=== PATIENT | male | born 1990 | race Hispanic/Latino ===

== ENCOUNTER 2017-08-28 17:03 | Emergency (ER) | payer OTHER ==
[2017-08-28] MEDS ORDERED: NORCO 5-325 TA1 EACH PO (18:35)
--- NOTE | 2017-08-28 22:24 | EKG ---
[facility] [address] [facility] [place], [place] [address] Signed Normal sinus rhythm Rightward axis Borderline ECG No previous ECGs available Confirmed by STU LOBO MD ([id number] on 08/28/2017 10:24:06 PM Electronically Signed By: STU LOBO MD 08/28/17 2224 PATIENT NAME: SABAS BANEGAS A Electrocardiogram DATE OF : [birth year] PHYSICIAN: STU LOBO MD REPORT #: [id number] REPORT IS CONFIDENTIAL AND NOT TO BE RELEASED WITHOUT AUTHORIZATION
== END 2017-08-28 18:52 | disposition home or self-care (01) ==
LOC: ED 17:03
DX: S30.1XXA Contusion of abdominal wall, initial encounter (principal); M25.572 Pain in left ankle and joints of left foot; M25.522 Pain in left elbow; V86.99XA Unspecified occupant of other special all-terrain or other off-road motor vehicle injured in nontraffic accident, initial encounter
CPT/HCPCS: 70450; 70460; 71260; 73080; 73610; 74177; 80053; 81001; 82150; 82550; 83605; 83690; 85025; 85610; 85730; 86850; 86900; 86901; 86920; 93005; 93010; 96374; 96375; 99284; G0480; J2270; J2405; J7120; Q9967

== ENCOUNTER 2017-10-28 15:47 | Emergency (ER) | payer OTHER ==
[~2017-10-28] VITALS: Ht 180.3 cm; Wt 90.7 kg
[~2017-10-28 15:47] MED LIST: NORCO 5-325 TA1 EACH PO
[2017-10-28] MEDS ORDERED: IBUPROFEN600 MG PO (17:15)
[2017-10-28] MEDS ORDERED: CYCLOBENZAPRINE5 MG PO (17:15)
== END 2017-10-28 17:22 | disposition home or self-care (01) ==
LOC: ED 15:47
DX: S63.502A Unspecified sprain of left wrist, initial encounter (principal); S60.852A Superficial foreign body of left wrist, initial encounter; M62.830 Muscle spasm of back; W22.8XXA Striking against or struck by other objects, initial encounter; F17.200 Nicotine dependence, unspecified, uncomplicated
CPT/HCPCS: 72100; 73110; 99283

== ENCOUNTER 2020-02-10 23:00 | Emergency (ER) | payer OTHER ==
[~2020-02-10] VITALS: Ht 180.3 cm; Wt 95.3 kg
[~2020-02-10 23:00] MED LIST changes: +CYCLOBENZAPRINE5 MG PO; +IBUPROFEN600 MG PO
== END 2020-02-11 01:38 | disposition home or self-care (01) ==
LOC: ED 23:00
DX: S40.011A Contusion of right shoulder, initial encounter (principal); S00.01XA Abrasion of scalp, initial encounter; F17.200 Nicotine dependence, unspecified, uncomplicated; V89.2XXA Person injured in unspecified motor-vehicle accident, traffic, initial encounter
CPT/HCPCS: 36415; 70450; 71260; 72125; 73030; 74177; 80053; 82150; 82550; 83605; 83690; 85025; 86850; 86900; 86901; 99284-25; G0480; Q9967